=== PATIENT | female | born 1995 | race Caucasian/White ===

== ENCOUNTER 2017-06-18 21:02 | Emergency (ER) | payer OTHER ==
--- NOTE | 2017-06-18 21:32 | PDOC ---
Rapid Medical Evaluation Time Seen by Provider: 06/18/17 21:30 Medical Evaluation: I have performed a brief in-person evaluation of this patient. The patient presents with a chief complaint of: head trauma 1 week ago. loss of vision in right eye today is what made her come to the ER Pertinent physical exam findings: none I have ordered the following: hcg, Head CT The patient will proceed to the ED for further evaluation.
[2017-06-18 21:38] VITALS: PULSE 90; TEMP 98.4; BMI 27.9
[2017-06-18] MEDS ORDERED: ACETAMINOPHEN 325 MG TABLET (FP) ONE (23:25)
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
[2017-06-19 00:18] VITALS: BP 130/70
== END 2017-06-19 00:18 | disposition home or self-care (01) ==
LOC: JER 21:02
PROC: 4A07X0Z Measurement of Visual Acuity, External Approach (ICD-10-PCS; principal; 2017-06-18)
DX: H53.8 Other visual disturbances (principal); W03.XXXA Other fall on same level due to collision with another person, initial encounter; Y93.89 Activity, other specified; Y92.89 Other specified places as the place of occurrence of the external cause
CPT/HCPCS: 70450-TC; 84703; 99283-25